=== PATIENT | female | born 1960 | race Caucasian/White ===

== ENCOUNTER 2017-01-10 14:21 | Outpatient (CLI) | payer OTHER ==
--- NOTE | 2017-01-12 09:35 | Mammography Report ---
DIGITAL BILATERAL SCREENING MAMMOGRAM: 01/10/2017 CLINICAL HISTORY: A 56-year-old female in for routine screening mammogram. Patient has no family hi story of breast cancer. Patient has no breast surgical history. COMPARISON: 05/15/2008, 05/16/2009, 06/04/2009, 06/25/2010, 07/31/2011, 08/16/2012, 09/06/2013, 09/25, 10/31/2015 TECHNIQUE: Craniocaudad and oblique lateral views of each breast were obtained with [employer] digital mammography. Axillary exaggerated craniocaudad views of both breasts were obtained to com pliment the exam. FINDINGS: Significantly heterogeneously dense breasts are noted bilaterally. No significant cluster s of calcification are seen. No significant masses are noted. No significant change is seen. IMPRESSION: SIGNIFICANTLY HETEROGENEOUSLY DENSE BREASTS ARE NOTED THAT APPEAR RADIOGRAPHICALLY BENIG N. BIRADS CATEGORY 1 - NEGATIVE. RECOMMENDATIONS: Annual bilateral screening mammography. STANDARD QUALIFYING STATEMENTS 1. This examination was reviewed with the aid of Computer-Aided Detection (CAD). 2. A negative or benign imaging report should not delay biopsy if clinically suspicious findings are present. Consider surgical consultation if warranted. More than 5% of cancers are not identified by i maging. 3. Dense breasts may obscure an underlying neoplasm. JOB #: [id number] EXT JOB #:[id number]
== END 2017-01-10 14:22 | disposition home or self-care (01) ==
LOC: DI 14:21
PROVIDERS: ATTEND Family Medicine
DX: Z12.31 Encounter for screening mammogram for malignant neoplasm of breast (principal)
CPT/HCPCS: 77067

== ENCOUNTER 2017-07-31 09:59 | Outpatient (CLI) | payer OTHER ==
[2017-07-31 10:34] LABS: BASOPHILS # (AUTO) 0.1 10^3/uL (0.0-0.1); BASOPHILS % (AUTO) 1.7 %; EOSINOPHILS # (AUTO) 0.1 10^3/uL (0.0-0.7); EOSINOPHILS % (AUTO) 1.4 %; HGB - HEMOGLOBIN 12.9 g/dL (12.0-16.0); LYMPHOCYTES # (AUTO) 1.5 10^3/uL (1.5-3.5); LYMPHOCYTES % (AUTO) 26.2 %; MEAN CORPUSCULAR HEMOGLOBIN 29.8 pg (27.0-31.0); MEAN CORPUSCULAR HGB CONC 33.9 g/dL (32.0-36.0); MEAN PLATELET VOLUME 7.3 fL (7.9-10.8); MONOCYTES # (AUTO) 0.4 10^3/uL (0.0-1.0); MONOCYTES % (AUTO) 7.3 %; NEUTROPHILS # (AUTO) 3.6 10^3/uL (1.5-6.6); NEUTROPHILS % (AUTO) 63.4 %; PLT - PLATELET COUNT 192 10^3/uL (130-450); RED BLOOD COUNT 4.32 10^6/uL (4.20-5.40); RED CELL DISTRIBUTION WIDTH 13.3 % (12.0-15.0); WHITE BLOOD COUNT 5.6 x10^3/uL (4.8-10.8)
[2017-07-31 10:50] LABS: ALBUMIN 4.2 g/dL (3.2-5.5); ALBUMIN/GLOBULIN RATIO 1.1 (1.0-2.2); ALKALINE PHOSPHATASE 52 IU/L (42-121); ALT ALANINE AMINOTRANSFERASE 17 IU/L (10-60); AST ASPARTATE AMINOTRANSFERASE 22 IU/L (10-42); BILIRUBIN,TOTAL 0.7 mg/dL (0.2-1.0); BUN - BLOOD UREA NITROGEN 11 mg/dL (6-20); CALCIUM 9.3 mg/dL (8.5-10.3); CARBON DIOXIDE - CO2 22 mmol/L (21-32); CHLORIDE 103 mmol/L (101-111); CHOL/HDL RATIO 3.6 (<4.4); CHOLESTEROL 147 mg/dL; CREATININE 0.6 mg/dL (0.4-1.0); GFR - MDRD 103 (>89); GLUCOSE 131 mg/dL (70-100); HDL CHOLESTEROL 41 mg/dL; LDL CHOLESTEROL,CALCULATED 92 mg/dL; LDL/HDL RATIO 2.2 (<4.4); SODIUM 138 mmol/L (135-145); TOTAL PROTEIN 7.9 g/dL (6.7-8.2); VLDL CHOLESTEROL 14 mg/dL
[2017-07-31 10:55] LABS: HB2 TOTAL 13.6 g/dL; HEMOGLOBIN A1C 0.79 g/dL; HEMOGLOBIN A1C % 7.5 % (4.6-6.2)
== END 2017-07-31 10:00 | disposition home or self-care (01) ==
LOC: LAB 09:59
PROVIDERS: ATTEND Family Medicine
DX: E78.5 Hyperlipidemia, unspecified (principal); E11.9 Type 2 diabetes mellitus without complications; I10 Essential (primary) hypertension
CPT/HCPCS: 36415; 80053; 80061; 82043; 83036; 83721; 85025

== ENCOUNTER 2018-02-13 15:15 | Outpatient (CLI) | payer OTHER | END 2018-02-13 15:16 | disposition short-term general hospital (02) | LOC: EMS 15:15 | PROVIDERS: ATTEND Surgery | DX: R07.89 Other chest pain (principal) ==

== ENCOUNTER 2018-03-24 09:24 | Outpatient (CLI) | payer OTHER ==
--- NOTE | 2018-03-27 12:39 | Mammography Report ---
Reason: SCREENING MAMMO Procedure Date: 03/24/2018 Accession Number: [id number] / [id number] Procedure: FRANCIE - Screening Mammo Dig Bilat CPT Code: FULL RESULT: EXAM: Screening Mammo Dig Bilat DATE: 03/24/2018 12:14 PM CLINICAL HISTORY: 57-year-old female with history of late childbearing. TECHNIQUE: Bilateral CC and MLO views were obtained. COMPARISON: 01/10/2017, 10/31/2015, 10/11/2014, 09/06/2013. FINDINGS: The breasts demonstrate heterogeneously dense fibroglandular parenchyma bilaterally. No suspicious masses, clustered microcalcifications, or regions of architectural distortion are identified. IMPRESSION: Negative examination RECOMMENDATION: Routine annual screening unless otherwise clinically indicated. BIRADS CATEGORY 1: Negative STANDARD QUALIFYING STATEMENTS: 1. This examination was not reviewed with the aid of Computer-Aided Detection (CAD). 2. A negative or benign imaging report should not delay biopsy if clinically suspicious findings are present. Consider surgical consultation if warrented. More than 5% of cancers are not identified by imaging. 3. Dense breasts may obscure an underlying neoplasm. 4. This examination was reviewed without the aid of 3D breast imaging (tomosynthesis).
== END 2018-03-24 09:25 | disposition home or self-care (01) ==
LOC: DI 09:24
DX: Z12.31 Encounter for screening mammogram for malignant neoplasm of breast (principal)
CPT/HCPCS: 77067

== ENCOUNTER 2018-04-27 14:49 | Outpatient (CLI) | payer OTHER ==
[2018-04-27 20:14] LABS: ALBUMIN 4.6 g/dL (3.2-5.5); ALBUMIN/GLOBULIN RATIO 1.1 (1.0-2.2); BILIRUBIN,TOTAL 0.5 mg/dL (0.2-1.0); CALCIUM 9.5 mg/dL (8.5-10.3); CREATININE 0.6 mg/dL (0.4-1.0); TOTAL PROTEIN 8.6 g/dL (6.7-8.2)
== END 2018-04-27 23:59 | disposition home or self-care (01) ==
LOC: LAB 14:49
PROVIDERS: ATTEND Family Medicine
DX: I10 Essential (primary) hypertension (principal)
CPT/HCPCS: 36415; 80053

== ENCOUNTER 2018-04-27 19:35 | Outpatient (CLI) | payer OTHER | END 2018-04-27 19:36 | disposition home or self-care (01) | LOC: LAB 19:35 | PROVIDERS: ATTEND Family Medicine | DX: I10 Essential (primary) hypertension (principal) ==

== ENCOUNTER 2018-04-28 07:25 | Outpatient (CLI) | payer OTHER ==
[2018-04-28] MEDS ORDERED: IOPAMIDOL-300 100 ML VIAL IVP ONE ×2 (07:26→07:59)
[2018-04-28] MEDS ORDERED: IOPAMIDOL-300 100 ML VIAL ONE (07:56)
--- NOTE | 2018-04-28 10:19 | CT Report ---
Reason: PULMONARY NODULE Procedure Date: 04/28/2018 Accession Number: [id number] / [id number] Procedure: CT - Chest W/ CPT Code: FULL RESULT: EXAM: CT CHEST EXAM DATE: 04/28/2018 08:35 AM. CLINICAL HISTORY: PULMONARY NODULE. COMPARISONS: None. TECHNIQUE: Routine helical CT imaging was performed through the chest. IV contrast: None. Reconstructions: Coronal and sagittal. In accordance with CT protocol optimization, one or more of the following dose reduction techniques were utilized for this exam: automated exposure control, adjustment of mA and/or KV based on patient size, or use of iterative reconstructive technique. FINDINGS: There is mild bilateral dependent atelectasis. Lungs/Pleura: There is a 6 mm solid nodule of the right lower lobe 4/ 43. There is a 4 mm nodule of the right lower lobe 4/37. There is a 3 mm nodule of the superior segment of the right lower lobe 4/30. There is a 2 mm nodule of the right lower lobe 4/39. There are several 2 mm nodules of the left upper lobe 4/31. Mediastinum: Normal. No adenopathy or masses. The ascending thoracic aorta measures 4.3 cm AP.. Bones: Unremarkable. Visualized Abdomen: Unremarkable. IMPRESSION: Multiple bilateral solid pulmonary nodules measure up to 6 mm. In a low risk patient recommend CT at 3-6 months with consideration of CT at 18-24 months. In a high-risk patient recommend CT at 3-[address] at 18-24 months. Ascending thoracic aortic aneurysm 4.3 cm. Recommend follow-up in 1 year. RADIA
== END 2018-04-28 07:26 | disposition home or self-care (01) ==
LOC: DI 07:25
PROVIDERS: ATTEND Family Medicine
DX: J98.4 Other disorders of lung (principal); R91.8 Other nonspecific abnormal finding of lung field; I71.2 Thoracic aortic aneurysm, without rupture; I10 Essential (primary) hypertension
CPT/HCPCS: 71260; Q9967

== ENCOUNTER 2018-08-26 09:46 | Outpatient (CLI) | payer OTHER ==
[2018-08-26 10:22] LABS: BASOPHILS # (AUTO) 0.1 10^3/uL (0.0-0.1); BASOPHILS % (AUTO) 0.9 %; EOSINOPHILS # (AUTO) 0.3 10^3/uL (0.0-0.7); EOSINOPHILS % (AUTO) 4.5 %; HGB - HEMOGLOBIN 13.5 g/dL (12.0-16.0); LYMPHOCYTES # (AUTO) 1.8 10^3/uL (1.5-3.5); LYMPHOCYTES % (AUTO) 28.5 %; MEAN CORPUSCULAR HEMOGLOBIN 29.8 pg (27.0-31.0); MEAN CORPUSCULAR HGB CONC 33.7 g/dL (32.0-36.0); MEAN CORPUSCULAR VOLUME 88.5 fL (81.0-99.0); MEAN PLATELET VOLUME 7.6 fL (7.9-10.8); MONOCYTES # (AUTO) 0.4 10^3/uL (0.0-1.0); MONOCYTES % (AUTO) 6.8 %; NEUTROPHILS # (AUTO) 3.8 10^3/uL (1.5-6.6); NEUTROPHILS % (AUTO) 59.3 %; PLT - PLATELET COUNT 210 10^3/uL (130-450); RED BLOOD COUNT 4.54 10^6/uL (4.20-5.40); RED CELL DISTRIBUTION WIDTH 13.2 % (12.0-15.0); WHITE BLOOD COUNT 6.5 x10^3/uL (4.8-10.8)
[2018-08-26 10:51] LABS: CHOLESTEROL 166 mg/dL; HDL CHOLESTEROL 56 mg/dL; LDL CHOLESTEROL,CALCULATED 86 mg/dL; LDL/HDL RATIO 1.5 (<4.4); VLDL CHOLESTEROL 24 mg/dL
[2018-08-26 10:53] LABS: HB2 TOTAL 15.2 g/dL; HEMOGLOBIN A1C 0.78 g/dL; HEMOGLOBIN A1C % 6.8 % (4.6-6.2)
== END 2018-08-26 09:47 | disposition home or self-care (01) ==
LOC: LAB 09:46
PROVIDERS: ATTEND Family Medicine
DX: E78.5 Hyperlipidemia, unspecified (principal); E11.9 Type 2 diabetes mellitus without complications; I10 Essential (primary) hypertension
CPT/HCPCS: 36415; 80061; 82043; 83036; 83721; 85025

== ENCOUNTER 2018-11-18 08:38 | Outpatient (CLI) | payer OTHER ==
[2018-11-18 09:05] LABS: ALBUMIN 4.7 g/dL (3.2-5.5); ALBUMIN/GLOBULIN RATIO 1.2 (1.0-2.2); BILIRUBIN,TOTAL 0.7 mg/dL (0.2-1.0); CALCIUM 9.5 mg/dL (8.5-10.3); CREATININE 0.7 mg/dL (0.4-1.0); TOTAL PROTEIN 8.5 g/dL (6.7-8.2)
[2018-11-18] MEDS ORDERED: IOVERSOL 320 100 ML VIAL IVP ONE ×2 (09:11→10:21)
--- NOTE | 2018-11-21 16:22 | CT Report ---
Reason: PULMONARY NODULE Procedure Date: 11/18/2018 Accession Number: [id number] / [id number] Procedure: CT - CHEST W CPT Code: FULL RESULT: EXAM: CT CHEST EXAM DATE: 11/18/2018 10:20 AM. CLINICAL HISTORY: Follow-up pulmonary nodule COMPARISONS: 04/28/2018. TECHNIQUE: Routine helical CT imaging was performed through the chest. IV contrast: 80 cc Optiray 320. Reconstructions: Coronal and sagittal. In accordance with CT protocol optimization, one or more of the following dose reduction techniques were utilized for this exam: automated exposure control, adjustment of mA and/or KV based on patient size, or use of iterative reconstructive technique. FINDINGS: Lungs/Pleura: Shallow inspiratory effort with dependent vascular congestion. 4 mm right lower lobe posterior nodules 4/ and 4/ similar to previous. Other small nodular densities described on the prior report axial images may represent vessels in cross section when correlated with coronal imaging or may be obscured by the congestion which is present because they are not well seen today. No pericardial or pleural effusion. No pneumothorax. Mediastinum: No adenopathy or masses. Dilated ascending aorta 4.2 cm Bones: Thoracolumbar junction dextroscoliosis. Degenerative change in the spine. Included upper Abdomen: Unremarkable. Other: None. IMPRESSION: 1. Dilated ascending aorta 4.2 cm, similar to previous. 2. Two stable 4 mm right lower lobe nodules. Other nodules seen on the prior study are not definitely appreciated today. 3. No significant new findings. 4. If this is a high risk patient consider follow-up CT in 18-24 months. RADIA
== END 2018-11-18 08:39 | disposition home or self-care (01) ==
LOC: LAB 08:38
PROVIDERS: ATTEND Family Medicine
DX: I10 Essential (primary) hypertension (principal); E11.9 Type 2 diabetes mellitus without complications; R91.8 Other nonspecific abnormal finding of lung field; I71.2 Thoracic aortic aneurysm, without rupture
CPT/HCPCS: 36415; 71260; 80053; Q9967

== ENCOUNTER 2019-03-18 10:42 | Outpatient (CLI) | payer OTHER ==
[2019-03-18 11:10] LABS: BASOPHILS % (AUTO) 0.6 %; EOSINOPHILS # (AUTO) 0.1 10^3/uL (0.0-0.7); EOSINOPHILS % (AUTO) 1.9 %; HGB - HEMOGLOBIN 11.6 g/dL (12.0-16.0); LYMPHOCYTES # (AUTO) 1.8 10^3/uL (1.5-3.5); LYMPHOCYTES % (AUTO) 28.9 %; MEAN CORPUSCULAR HEMOGLOBIN 28.2 pg (27.0-31.0); MONOCYTES # (AUTO) 0.5 10^3/uL (0.0-1.0); MONOCYTES % (AUTO) 7.4 %; NEUTROPHILS # (AUTO) 3.9 10^3/uL (1.5-6.6); PLT - PLATELET COUNT 221 10^3/uL (130-450); RED BLOOD COUNT 4.11 10^6/uL (4.20-5.40); RED CELL DISTRIBUTION WIDTH 14.8 % (12.0-15.0); WHITE BLOOD COUNT 6.4 x10^3/uL (4.8-10.8)
[2019-03-18 11:27] LABS: ALBUMIN 4.4 g/dL (3.2-5.5); ALBUMIN/GLOBULIN RATIO 1.2 (1.0-2.2); ALKALINE PHOSPHATASE 56 IU/L (42-121); ALT ALANINE AMINOTRANSFERASE 19 IU/L (10-60); AST ASPARTATE AMINOTRANSFERASE 28 IU/L (10-42); BILIRUBIN,TOTAL 0.9 mg/dL (0.2-1.0); BUN - BLOOD UREA NITROGEN 12 mg/dL (6-20); CALCIUM 9.4 mg/dL (8.5-10.3); CARBON DIOXIDE - CO2 20 mmol/L (21-32); CHLORIDE 110 mmol/L (101-111); CHOL/HDL RATIO 3.3 (<4.4); CHOLESTEROL 163 mg/dL; CREATININE 0.6 mg/dL (0.4-1.0); GFR - MDRD 103 (>89); GLUCOSE 122 mg/dL (70-100); HB2 TOTAL 12.2 g/dL; HDL CHOLESTEROL 50 mg/dL; HEMOGLOBIN A1C 0.52 g/dL; HEMOGLOBIN A1C % 6.1 % (4.6-6.2); LDL CHOLESTEROL,CALCULATED 95 mg/dL; LDL/HDL RATIO 1.9 (<4.4); SODIUM 141 mmol/L (135-145); TOTAL PROTEIN 8.1 g/dL (6.7-8.2); VLDL CHOLESTEROL 18 mg/dL
== END 2019-03-18 10:43 | disposition home or self-care (01) ==
LOC: LAB 10:42
PROVIDERS: ATTEND Family Medicine
DX: I10 Essential (primary) hypertension (principal); E78.5 Hyperlipidemia, unspecified; E11.9 Type 2 diabetes mellitus without complications
CPT/HCPCS: 36415; 80053; 80061; 83036; 83721; 85025

== ENCOUNTER 2019-08-12 14:38 | Outpatient (CLI) | payer OTHER ==
--- NOTE | 2019-08-13 01:01 | Ultrasound Report ---
Reason: POSTMENOPAUSAL BLEEDING Procedure Date: 08/12/2019 Accession Number: [id number] / [id number] Procedure: US - Pelvic w/Transvaginal CPT Code: Final Report FULL RESULT: EXAM: PELVIC ULTRASOUND EXAM DATE: 08/12/2019 03:43 PM. CLINICAL HISTORY: POSTMENOPAUSAL BLEEDING. Status post Coumadin. LMP December 2018. During PCP visit palpated possible polyp at cervix region. On today's exam, polyp protruding out of the cervix with a feeder vessel 1.1 cm. COMPARISON: None. TECHNIQUE: Realtime transabdominal pelvic scan performed to identify the uterus and adnexa and as an overview of other pelvic structures, followed by transvaginal scan to provide greater detail of the uterus and adnexa, with static image documentation. FINDINGS: Uterus: 6 x 2.9 x 4.1 cm, volume 36.7 cc. Anteverted position. Normal overall size and echotexture. Masses: None. Endometrium: 3 mm. Normal. Cervix: There appears to be an echogenic vascular polyp with a feeder vessel. This polyp protrudes out of the external cervical os. This polyp measures 5 x 11 x 6 mm. Right Ovary: Not seen, obscured by bowel gas. Visualized portions of the right adnexa appear unremarkable. Left Ovary: 1.9 x 0.7 x 1 cm, volume 0.7 cc. Normal echotexture and blood flow. Free Fluid: Trace free fluid seen in the posterior cul-de-sac. IMPRESSION: 1. Cervical polyp. See above. 2. Trace free fluid in the posterior cul-de-sac. RADIA
== END 2019-08-12 14:39 | disposition home or self-care (01) ==
LOC: DI 14:38
PROVIDERS: ATTEND Family Medicine
DX: N84.1 Polyp of cervix uteri (principal)
CPT/HCPCS: 76830; 76856

== ENCOUNTER 2019-08-24 08:25 | Outpatient (CLI) | payer OTHER ==
--- NOTE | 2019-08-27 13:02 | DEXA Report ---
Reason: SCREENING FOR OSTEOPOROSIS Procedure Date: 08/24/2019 Accession Number: [id number] / [id number] Procedure: DEX - Dexa Spine and/or Hip CPT Code: Final Report FULL RESULT: EXAM: Dexa Spine and/or Hip DATE: 08/24/2019 9:02 AM CLINICAL HISTORY: SCREENING FOR OSTEOPOROSIS TECHNIQUE: Dual energy x-ray absorptiometry (DXA) was performed on a [employer] System. Regions measured are the AP Spine, femoral neck, and if needed forearm. COMPARISON: None. In accordance with the International Society for Clinical Densitometry (ISCD) guidelines, data from previous exams may be reanalyzed using current recommendations and techniques. This is done to allow a more accurate basis for comparison with the current study. FINDINGS: The data for the lumbar spine is as follows: BMD (g/cm/cm) T-SCORE Z-SCORE REGION L1 1.022 -0.9 0.5 L2 1.014 -1.6 -0.1 L3 1.112 -0.7 0.7 L4 1.195 0.0 1.4 TOTAL 1.093 -0.7 0.7 NOTE: All evaluable vertebrae are used for classification The data for the hip is as follows: BMD (g/cm/cm) T-SCORE Z-SCORE REGION Neck 0.882 -1.1 0.3 TOTAL 0.960 -0.4 0.7 NOTE: The femoral neck or total proximal femur, whichever is lowest, is used for classification. IMPRESSION: THE WHO CLASSIFICATION BASED ON THE INTERNATIONAL REFERENCE STANDARD IS OSTEOPENIA. THE FRACTURE RISK IS INCREASED. RECOMMENDATION: Patients with diagnosis of osteoporosis or osteopenia should have regular bone mineral density assessment. For those eligible for Medicare, routine testing is allowed once every 2 years. Testing frequency can be increased for patients who have rapidly progressing disease or for those who are receiving medical therapy to restore bone mass. COMMENT: World Health Organization (WHO) definitions for osteoporosis and osteopenia: NORMAL BMD: T-score at -1.0 or higher, fracture risk is low OSTEOPENIA BMD: T-score between -1.0 and -2.5, fracture risk is increased. OSTEOPOROSIS BMD: T-score at -2.5 or lower, fracture risk is high. National Osteoporosis Foundation recommends: 1. Obtain adequate dietary calcium (at least 1200 mg per day) and vitamin D (400-800 international units per day). 2. Participate, as appropriate, in regular weightbearing and muscle-strengthening exercise. 3. Avoid tobacco use and reduce alcohol and caffeine intake. 4. For more detailed information see the website at www.NOF.org.
== END 2019-08-24 08:26 | disposition home or self-care (01) ==
LOC: DI 08:25
PROVIDERS: ATTEND Family Medicine
DX: Z13.820 Encounter for screening for osteoporosis (principal); M85.88 Other specified disorders of bone density and structure, other site; Z78.0 Asymptomatic menopausal state
CPT/HCPCS: 77080

== ENCOUNTER 2021-01-16 16:21 | Outpatient (CLI) | payer OTHER ==
[2021-01-16 21:26] LABS: INR 3.1 (0.8-1.2); PT - PROTHROMBIN TIME 32.2 secs (9.9-12.6)
== END 2021-01-16 16:22 | disposition home or self-care (01) ==
LOC: LAB.N 16:21
PROVIDERS: ATTEND Internal Medicine
DX: Z79.01 Long term (current) use of anticoagulants (principal); Z95.2 Presence of prosthetic heart valve
CPT/HCPCS: 36415; 85610

== ENCOUNTER 2021-05-29 11:19 | Outpatient (CLI) | payer OTHER ==
--- NOTE | 2021-06-01 13:59 | Mammography Report ---
BILATERAL DIGITAL SCREENING MAMMOGRAM 3D/2D: 05/29/2021 CLINICAL: Routine screening. Comparison is made to exams dated: 03/24/2018 mammogram, 01/10/2017 mammogram, and 10/31/2015 mammogram - [facility]. The tissue of both breasts is heterogeneously dense. This may lower the sensitivity of mammography. No significant masses, calcifications, or other findings are seen in either breast. There has been no significant interval change. IMPRESSION: NEGATIVE There is no mammographic evidence of malignancy. A 1 year screening mammogram is recommended. This exam was interpreted at Station ID: [id number]. NOTE: For mammograms, a report in lay terms will be sent to the patient. Approximately 15% of breast malignancies will not be visualized mammographically. In the management of a palpable breast mass, a negative mammogram must not discourage biopsy of a clinically suspicious lesion. Electronically Signed By: Adri mercado/frank:05/29/2021 18:04:00 ACR BI-RADS Category 1: Negative 3341F PARENCHYMAL PATTERN: (D) - The breast(s) demonstrate(s) heterogeneously dense fibroglandular josie antoine. BI-RADS CATEGORY: (1) - 1 RECOMMENDATION: (ANNUAL) - Recommend routine annual screening mammography. [id number] 1 year screening LATERALITY: (B)
== END 2021-05-29 11:20 | disposition home or self-care (01) ==
LOC: DI 11:19
PROVIDERS: ATTEND Internal Medicine
DX: Z12.31 Encounter for screening mammogram for malignant neoplasm of breast (principal)

== ENCOUNTER 2022-07-26 18:52 | Outpatient (CLI) | payer OTHER ==
--- NOTE | 2022-07-27 12:49 | Ultrasound Report ---
PROCEDURE: Pelvic w/Transvaginal INDICATIONS: POST MENOPAUSAL BLEEDING TECHNIQUE: Real-time scanning was performed of the pelvic organs, with image documentation. Additional endovagi nal scanning was necessary due to incomplete visualization of the adnexal and endometrial structures by transabdominal scanning. COMPARISON: Pelvic ultrasound 08/12/2019. FINDINGS: Uterus: Uterus is anteverted and unremarkable in size for age measuring 6.8 x 2.1 x 3.4 cm. The myom etrium is mildly heterogeneous. The endometrium is difficult to visualize but measures approximately 13 mm in combined thickness. No definite focal endometrial lesion or abnormal vascularity identifie d. Ovaries: The right ovary measures 2.1 x 1.0 x 1.7 cm, with a calculated ovarian volume of 2 cc. The left ovary was not visualized, likely due to bowel gas and/or senescent change. No adnexal masses a re seen. Other: No pathologic free abdominal or pelvic fluid. IMPRESSION: 1. The endometrium is challenging to visualize but measures approximately 13 mm in thickness, abnorma lly thickened in the setting of postmenopausal bleeding. Differential considerations include endometr ial hyperplasia or carcinoma. Gynecology consultation may be helpful to direct further management. 2. Left ovary not visualized, likely due to bowel gas and/or senescent change. No adnexal mass visual ized. Reviewed by: Maxim Alan MD on 07/27/2022 12:48 PM PST Approved by: Maxim Alan MD on 07/27/2022 12:48 PM PST Station ID: [id number]
== END 2022-07-26 18:53 | disposition home or self-care (01) ==
LOC: DI 18:52
PROVIDERS: ATTEND Physician Assistant
DX: R93.89 Abnormal findings on diagnostic imaging of other specified body structures (principal); N95.0 Postmenopausal bleeding

== ENCOUNTER 2022-11-01 19:38 | Outpatient (CLI) | payer OTHER ==
[2022-11-01 20:02] LABS: BASOPHILS # (AUTO) 0.1 10^3/uL (0.0-0.1); BASOPHILS % (AUTO) 0.7 %; EOSINOPHILS # (AUTO) 0.3 10^3/uL (0.0-0.7); EOSINOPHILS % (AUTO) 2.8 %; HGB - HEMOGLOBIN 11.8 g/dL (12.0-16.0); LYMPHOCYTES # (AUTO) 2.9 10^3/uL (1.5-3.5); LYMPHOCYTES % (AUTO) 32.4 %; MEAN CORPUSCULAR HGB CONC 31.9 g/dL (32.0-36.0); MEAN CORPUSCULAR VOLUME 90.9 fL (81.0-99.0); MEAN PLATELET VOLUME 9.9 fL (7.9-10.8); MONOCYTES # (AUTO) 0.7 10^3/uL (0.0-1.0); MONOCYTES % (AUTO) 8.2 %; NEUTROPHILS # (AUTO) 4.9 10^3/uL (1.5-6.6); NEUTROPHILS % (AUTO) 55.7 %; PLT - PLATELET COUNT 272 10^3/uL (130-450); RED BLOOD COUNT 4.07 10^6/uL (4.20-5.40); RED CELL DISTRIBUTION WIDTH 13.7 % (12.0-15.0); WHITE BLOOD COUNT 8.9 x10^3/uL (4.8-10.8)
[2022-11-01 20:08] LABS: INR 2.9 (0.8-1.2); PT - PROTHROMBIN TIME 30.2 secs (9.9-12.6)
[2022-11-01 20:14] LABS: ALBUMIN 4.9 g/dL (3.2-5.5); ALBUMIN/GLOBULIN RATIO 1.2 (1.0-2.2); BILIRUBIN,TOTAL 0.8 mg/dL (0.2-1.0); CALCIUM 9.4 mg/dL (8.5-10.3); CREATININE 0.7 mg/dL (0.4-1.0); POTASSIUM 3.8 mmol/L (3.5-5.0)
== END 2022-11-01 19:39 | disposition home or self-care (01) ==
LOC: LAB 19:38
PROVIDERS: ATTEND Obstetrics & Gynecology
DX: Z01.812 Encounter for preprocedural laboratory examination (principal); N95.0 Postmenopausal bleeding; E11.9 Type 2 diabetes mellitus without complications
CPT/HCPCS: 36415; 80053; 85025; 85610; 86850; 86900; 86901

== ENCOUNTER 2022-11-02 06:38 | Day surgery (SDC) | payer OTHER ==
[2022-11-02] MEDS: LACTATED RINGERS 1,000 ML IV ONE ×2 (07:05→09:02)
[2022-11-02] MEDS: miSOPROStoL 200 MCG TABLET ONE (07:10)
[2022-11-02] MEDS ORDERED: PROPOFOL 200 MG/20 ML VIAL IVP ONE (07:37)
--- NOTE | 2022-11-02 07:37 | ANESTHESIA ---
Pre-Anesthesia VS, & Labs - Diagnosis post menopausal bleeding - Procedure myosure hysteroscopy, D&C Vital Signs: Temp Pulse Resp BP Pulse Ox O2 Flow Rate 36.6 C 72 16 161/64 H 99 0 11/02/22 07:11 11/02/22 07:11 11/02/22 07:11 11/02/22 07:11 11/02/22 07:11 11/02/22 07:11 Height: 4 ft 11 in Weight (kg): 53.3 kg Body Mass Index: 23.7 BMI Classification: Normal - NPO >8 hours - Is Patient ?: No - Lab Results Current Lab Results: Laboratory Tests 11/02/22 07:09: POC Whole Bld Glucose 181 H 11/02/22 07:09: INR (Fingerstick) 2.5 H Lab results reviewed: Yes Home Medications and Allergies Home Medications: Ambulatory Orders Amlodipine Besylate [Norvasc] 2.5 mg PO BID 10/28/22 Aspirin [Aspirin EC] 81 mg PO DAILY 10/28/22 Butalb/Acetam/Caff 50/325/40 [Fioricet] 1 each PO Q4-6H PRN 10/28/22 Cholecalciferol [Vitamin D3] 25 mcg PO DAILY 10/28/22 Ferrous Sulfate 325 mg PO ONCE 10/28/22 Fluticasone [Flonase] 1 sprays ANA BID PRN 10/28/22 Loratadine [Claritin] 10 mg PO DAILY 10/28/22 Losartan [Cozaar] 50 mg PO DAILY 10/28/22 Multivitamin 1 each PO DAILY 10/28/22 Nadolol [Corgard] 80 mg PO BID 10/28/22 Omeprazole 40 mg PO DAILY 10/28/22 Rosuvastatin Calcium [Crestor] 10 mg PO QPM 10/28/22 Topiramate 50 mg PO BID 10/28/22 Warfarin Sodium [Coumadin] 2 - 3 mg PO DAILY 10/28/22 glipiZIDE [Glucotrol] 2.5 mg PO DAILY 10/28/22 metFORMIN [Glucophage] 1,000 mg PO BIDWM 10/28/22 Amlodipine Besylate [Norvasc] 2.5 mg PO BID 10/28/22 Aspirin [Aspirin EC] 81 mg PO DAILY 10/28/22 Butalb/Acetam/Caff 50/325/40 [Fioricet] 1 each PO Q4-6H PRN 10/28/22 Cholecalciferol [Vitamin D3] 25 mcg PO DAILY 10/28/22 Ferrous Sulfate 325 mg PO ONCE 10/28/22 Fluticasone [Flonase] 1 sprays ANA BID PRN 10/28/22 Loratadine [Claritin] 10 mg PO DAILY 10/28/22 Losartan [Cozaar] 50 mg PO DAILY 10/28/22 Multivitamin 1 each PO DAILY 10/28/22 Nadolol [Corgard] 80 mg PO BID 10/28/22 Omeprazole 40 mg PO DAILY 10/28/22 Rosuvastatin Calcium [Crestor] 10 mg PO QPM 10/28/22 Topiramate 50 mg PO BID 10/28/22 Warfarin Sodium [Coumadin] 2 - 3 mg PO DAILY 10/28/22 glipiZIDE [Glucotrol] 2.5 mg PO DAILY 10/28/22 metFORMIN [Glucophage] 1,000 mg PO BIDWM 10/28/22 Allergies/Adverse Reactions: Allergies Allergy/AdvReac Type Severity Reaction Status Date / Time hydrochlorothiazide Allergy Rash with Verified 10/28/22 12:26 sun exposure Sulfa (Sulfonamide Allergy Hives Verified 10/28/22 12:26 Antibiotics) lisinopril AdvReac cough Verified 10/28/22 12:26 Anes History & Medical History - Medical History Cardiovascular: reports: Hypertension, High cholesterol, Valve disorder Pulmonary: reports: None Gastrointestinal: reports: GERD, Colon polyps, Hepatitis Urinary: reports: None Musculoskeletal: reports: Scoliosis Endocrine/Autoimmune: reports: Type 2 diabetes Skin: reports: None - Surgical History General: reports: Colonoscopy, EGD Cardiothoracic: reports: Valve replacement Gynecologic: reports: section Orthopedic: reports: Carpal Tunnel surgery Exam General: Alert, Oriented x3 Dental: Dentures full Lower Mouth Openin Fingerbreadth Mallampati classification: II Thyromental Distance: 4-6 cm Respiratory: Lungs clear, Normal breath sounds, No respiratory distress Cardiovascular: Regular rate Neurological: Normal speech Mental/Cognitive Status: Alert/Oriented X3, Normal for patient Cognitive Status: Within normal limits Plan Anesthesia Type: General Consent for Procedure(s) Verified and Reviewed: Yes Code Status: Attempt Resuscitation ASA classification: 3-Severe systemic disease Is this case an emergency?: No
[2022-11-02] MEDS ORDERED: MIDAZOLAM 2 MG/2 ML VIAL ONE (07:38)
[2022-11-02] MEDS ORDERED: fentaNYL 100 MCG/2 ML VIAL ONE (07:38)
[2022-11-02] MEDS ORDERED: LIDOCAINE-PF 2% 10 ML AMP SUBQ ONE (07:43)
[2022-11-02] MEDS ORDERED: ATROPINE ABBOJECT 1 MG/10 ML SYRINGE IVP PRN (07:45)
[2022-11-02] MEDS ORDERED: MORPHINE 2 MG/ML CARPUJECT IVP PRN (07:45)
[2022-11-02] MEDS ORDERED: fentaNYL 100 MCG/2 ML VIAL IVP PRN (07:45)
[2022-11-02] MEDS ORDERED: HYDROmorphone 0.5 MG/0.5 ML SYRINGE IVP PRN (07:45)
[2022-11-02] MEDS ORDERED: ONDANSETRON 4 MG/2 ML VIAL IVP PRN (07:45)
[2022-11-02] MEDS ORDERED: NALOXONE 0.4 MG/ML VIAL IVP PRN (07:45)
[2022-11-02] MEDS ORDERED: METOCLOPRAMIDE 10 MG/2 ML VIAL IVP PRN (07:45)
[2022-11-02] MEDS ORDERED: ePHEDrine 50 MG/ML VIAL IVP PRN (07:45)
[2022-11-02] MEDS ORDERED: LACTATED RINGERS 1,000 ML IV SCH (08:00)
[2022-11-02] MEDS ORDERED: DEXAMETHASONE 4 MG/ML VIAL ONE (08:29)
[2022-11-02] MEDS ORDERED: PHENYLEPHRINE 10 MG/ML VIAL ONE (08:30)
[2022-11-02 09:48] VITALS: BP 136/60
--- NOTE | 2022-11-02 10:27 | ANESTHESIA POST OP EVALUATION ---
Anesthesia Post Eval - Post Anesthesia Eval Vitals: Last Vital Signs Temp 36.6 C 11/02/22 10:24 Pulse 68 11/02/22 10:24 Resp 18 11/02/22 10:24 BP 136/60 H 11/02/22 09:47 Pulse Ox 98 11/02/22 10:24 O2 Flow Rate 0 11/02/22 07:11 CV Function Including HR & BP: Stable Pain Control: Satisfactory Nausea & Vomiting: Negative Mental Status: Baseline Respiratory Status: Airway Patent Hydration Status: Satisfactory Anesthesia Complications: None
--- NOTE | 2022-11-02 11:00 | OPERATIVE REPORT ---
Operative Report - General Procedure Date: 11/02/22 Planned Procedure: Dilation, curettage, hysteroscopy Pre-Op Diagnosis: Postmenopausal bleeding, thickened endometrium Procedure Performed: Dilation, curettage, hysteroscopy Post Op Diagnosis: Normal appearing endometrium - Procedure Note Primary Surgeon: Simona Quinn DO Anesthesia Provider: Delon Ramos CRNA Anesthesia Technique: General LMA Pathology: Endometrial curettings Estimated Blood Loss (mL): 10 Indications: Postmenopausal bleeding, thickened endometrium Findings: Normal appearing endometrium, no polyps or leiomyoma noted, ostia visualized Complications: None - Other Other Information/Narrative: Patient transported to OR where general LMA obtained without difficulty. Placed in dorsal lithotomy position in Compa stirrups. Prepped and draped in sterile fashion. Time out performed. Speculum placed. Cervix atrophic and flush with vagina. Tenaculum placed posteriorly. Cervix dilated to accomodate Myosure hysteroscope. Uterine cavity normal as above. Hysteroscope removed. Curettage performed and endometrial curettings obtained. Tenaculum removed. Hemostasis. Speculum removed. Tolerated procedure well. Counts correct x2. Transferred to PACU in stable condition.
== END 2022-11-02 06:39 | disposition home or self-care (01) ==
LOC: SDS 06:38
PROVIDERS: ATTEND Obstetrics & Gynecology
PROC: 0UDB8ZZ Extraction of Endometrium, Via Natural or Artificial Opening Endoscopic (ICD-10-PCS; principal; 2022-11-02 08:30)
DX: N95.0 Postmenopausal bleeding (principal); R93.89 Abnormal findings on diagnostic imaging of other specified body structures; E11.9 Type 2 diabetes mellitus without complications; Z79.84 Long term (current) use of oral hypoglycemic drugs; Z79.01 Long term (current) use of anticoagulants; Z95.2 Presence of prosthetic heart valve
CPT/HCPCS: 58558; 85610; A9270; J7120

== ENCOUNTER 2023-06-16 15:04 | Outpatient (CLI) | payer OTHER | END 2023-06-16 15:05 | disposition home or self-care (01) | LOC: LAB.N 15:04 | PROVIDERS: ATTEND Internal Medicine | DX: Z51.81 Encounter for therapeutic drug level monitoring (principal); Z79.01 Long term (current) use of anticoagulants; Z98.890 Other specified postprocedural states; Z95.2 Presence of prosthetic heart valve | CPT/HCPCS: 36416; 85610 ==

== ENCOUNTER 2024-02-10 10:41 | Outpatient (CLI) | payer OTHER | END 2024-02-10 10:42 | disposition home or self-care (01) | LOC: LAB.N 10:41 | PROVIDERS: ATTEND Internal Medicine | DX: Z98.890 Other specified postprocedural states (principal); Z95.2 Presence of prosthetic heart valve; Z79.01 Long term (current) use of anticoagulants | CPT/HCPCS: 36416; 85610 ==

== ENCOUNTER 2024-02-13 13:08 | Outpatient (CLI) | payer OTHER ==
--- NOTE | 2024-02-15 22:52 | XRAY Report ---
PROCEDURE: Foot 1-2V LT INDICATIONS: PAIN IN LEFT FOOT TECHNIQUE: 2 views of the foot were acquired. COMPARISON: None. FINDINGS: Bones: No fractures or dislocations. No suspicious bony lesions. Mild calcaneal enthesopathy. Soft tissues: No tibiotalar joint effusion. Achilles tendon appears normal. IMPRESSION: No acute bony abnormality. Mild calcaneal enthesopathy. Reviewed by: ONEIL Pelayo on 02/15/2024 10:50 PM PDT Approved by: Vanessa Guy MD on 02/15/2024 10:50 PM PDT Station ID: [id number]
== END 2024-02-13 13:09 | disposition home or self-care (01) ==
LOC: DI 13:08
PROVIDERS: ATTEND Nurse Practitioner
DX: M77.32 Calcaneal spur, left foot (principal)

== ENCOUNTER 2024-02-26 14:55 | Emergency (ER) | payer OTHER ==
[2024-02-26 15:50] LABS: INR 3.2 (0.8-1.2); PT - PROTHROMBIN TIME 32.9 secs (9.9-12.6)
--- NOTE | 2024-02-26 16:03 | ED Physician Documentation ---
History of Present Illness - Stated complaint Stated Complaint: BRUISES ON FOOT, NEW MED - Chief complaint Chief Complaint: Ext Problem - Additonal information Additional information: 63-year-old female who is anticoagulated on Coumadin because of history of mechanical valve presents emergency department for left foot bruising. Patient said that she has already been seen at walk-in clinic but wanted to come to the emergency department for further evaluation to get a second opinion. She reports that she has recently has been switched from Coumadin to Lovenox and then back to Coumadin because she recently had a colonoscopy outpatient. Her main concern is that she has a blood clot in her left foot as she has some bruising to the dorsalis portion of her foot with some mild tenderness. Patient also reports that she recently got a pedicure and then almost immediately after the pedicures when she noticed bruising to the top of her left foot. She said that she did have some pain and discomfort during the pedicure of her left foot but she did not see anything. She also recently had x-rays on 02/14 for further evaluation of this bruising which shows mild calcaneal encephalopathy but no other acute bony abnormalities or findings. No calf pain or tenderness no shortness of breath no unilateral leg swelling. 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 Cardiovascular: Valve replacement - Present Medications Home Medications: Ambulatory Orders Medication Instructions Recorded Confirmed Amlodipine Besylate [Norvasc] 2.5 mg PO BID 10/28/22 10/28/22 Aspirin [Aspirin EC] 81 mg PO DAILY 10/28/22 10/28/22 Butalb/Acetam/Caff 50/325/40 1 each PO Q4-6H PRN 10/28/22 10/28/22 [Fioricet] Cholecalciferol [Vitamin D3] 25 mcg PO DAILY 10/28/22 10/28/22 Ferrous Sulfate 325 mg PO ONCE 10/28/22 10/28/22 Fluticasone [Flonase] 1 sprays ANA BID PRN 10/28/22 10/28/22 Loratadine [Claritin] 10 mg PO DAILY 10/28/22 10/28/22 Losartan [Cozaar] 50 mg PO DAILY 10/28/22 10/28/22 Multivitamin 1 each PO DAILY 10/28/22 10/28/22 Nadolol [Corgard] 80 mg PO BID 10/28/22 10/28/22 Omeprazole 40 mg PO DAILY 10/28/22 10/28/22 Rosuvastatin Calcium [Crestor] 10 mg PO QPM 10/28/22 10/28/22 Topiramate 50 mg PO BID 10/28/22 10/28/22 Warfarin Sodium [Coumadin] 2 - 3 mg PO DAILY 10/28/22 10/28/22 glipiZIDE [Glucotrol] 2.5 mg PO DAILY 10/28/22 10/28/22 metFORMIN [Glucophage] 1,000 mg PO BIDWM 10/28/22 10/28/22 - Allergies Allergies/Adverse Reactions: Allergies Allergy/AdvReac Type Severity Reaction Status Date / Time hydrochlorothiazide Allergy Rash with Verified 02/26/24 15:01 sun exposure Sulfa (Sulfonamide Allergy Hives Verified 02/26/24 15:01 Antibiotics) lisinopril AdvReac cough Verified 02/26/24 15:01 - Social History Does the pt smoke?: No Smoking Status: Never smoker Does the pt drink ETOH?: No Does the pt have substance abuse?: No - Immunizations Immunizations are current?: Yes PD ED PE NORMAL - Vitals Vital signs reviewed: Yes - General General: Alert and oriented X 3, No acute distress, Well developed/nourished - Derm Derm: Other (Left foot bruising) - Extremities Extremities: Other - Free text exam Free text exam: Left foot: Entire dorsal surface with bruising that is a fading purple/green color there is minimal tenderness with palpation to the left foot and minimal swelling. Temperature is equal bilaterally able to flex and extend all toes without any difficulty as well as left ankle. CMS intact, strong dorsalis pedis pulse Results - Vitals Vitals: Vital Signs - 24 hr 02/26/24 02/26/24 15:01 16:25 Temperature 36.7 C Heart Rate 75 70 Respiratory 16 22 Rate Blood Pressure 172/74 H 149/69 H O2 Saturation 100 98 - Labs Labs: Laboratory Tests 02/26/24 15:29 PT 32.9 H INR 3.2 H PD Medical Decision Making - ED course ED course: 63-year-old female presents emergency department for left foot bruising. She says that this happened after she had a pedicure but is still worried because t he bruising is not subsiding. The the bruise is covering almost the entire dorsal aspect of her left foot there is mild tenderness to the dorsalis region of her foot with minimal swelling strong dorsalis pedis pulse and CMS intact. Patient is able to flex and extend her ankle without any difficulty as well as wiggle all toes she has no unilateral calf swelling or calf pain. She is able to ambulate and bear weight without any difficulty. Her main concern is that she may have a blood clot. I reassured the patient that given that she has been on anticoagulants this entire time between Lovenox and Coumadin and she is followed by Coumadin clinic for therapeutic levels I do not feel that there is any reason to do a venous duplex for possible blood clot. Well score for DVT is 0 points making her very low risk. Patient is reassured by this information she is informed that this is going to take a longer time to heal than normal because of her anticoagulation on Coumadin. She is told to follow-up with primary care provider as needed to elevate above heart to help with mild swelling and that she can take Tylenol if she is having any pain or discomfort of the left foot from the bruise. Return precautions given all questions answered patient is safe for discharge at this time. Departure - Departure Disposition: 01 Home, Self Care Clinical Impression: Hematoma of left foot Instructions: Bruises Contusions, ED Contusion Foot Comments: Thank you for trusting us with your care, we have evaluated you for the bruising to your left foot. You can apply ice 20 minutes at a time 1 hour off to help with healing of the bruising and keep your foot elevated above your heart when sitting or at rest to help with swelling. I do not believe that you have a blood clot and this is just going to take time to heal. Please come back to the ER for having any shortness of breath, fevers or chills or any other concerning emergent symptoms. Forms: PCP List Discharge Date/Time: 02/26/24 16:25
[2024-02-26 16:29] VITALS: BP 149/69; O2SAT 98
== END 2024-02-26 16:25 | disposition home or self-care (01) ==
LOC: ED 14:55
DX: S90.32XA Contusion of left foot, initial encounter (principal); X58.XXXA Exposure to other specified factors, initial encounter; I10 Essential (primary) hypertension; E78.00 Pure hypercholesterolemia, unspecified; E11.9 Type 2 diabetes mellitus without complications; Z79.82 Long term (current) use of aspirin; Z79.899 Other long term (current) drug therapy; Z79.01 Long term (current) use of anticoagulants; Z79.84 Long term (current) use of oral hypoglycemic drugs
CPT/HCPCS: 36415; 85610; 99283

== ENCOUNTER 2024-03-23 14:46 | Outpatient (CLI) | payer OTHER ==
--- NOTE | 2024-03-23 18:34 | Ultrasound Report ---
PROCEDURE: Pelvic w/Transvaginal INDICATIONS: ENDOMETRIAL THICKENING TECHNIQUE: Real-time scanning was performed of the pelvic organs, with image documentation. Additional endovagi nal scanning was necessary due to incomplete visualization of the adnexal and endometrial structures by transabdominal scanning. COMPARISON: 07/26/2022 FINDINGS: Uterus: 5.1 x 2.6 x 4 cm. The endometrium measures 2 to 3 mm, decreased from prior imaging. Anteverte d positioning. Endometrium is mildly heterogeneous. Ovaries: Not seen, possibly atrophic Other: No pathologic free fluid. IMPRESSION: Mildly heterogeneous endometrium, with decreased thickness compared to prior, within normal limits un harpal 5 mm now. Reviewed by: Titi Damian MD on 03/23/2024 6:33 PM PDT Approved by: Titi Damian MD on 03/23/2024 6:33 PM PDT Station ID: [id number]
== END 2024-03-23 14:47 | disposition home or self-care (01) ==
LOC: DI 14:46
PROVIDERS: ATTEND Obstetrics & Gynecology
DX: R93.89 Abnormal findings on diagnostic imaging of other specified body structures (principal)